=== PATIENT | female | born 1970 | race Caucasian/White ===

== ENCOUNTER 2019-02-24 16:40 | Emergency (ER) | payer OTHER ==
[~2019-02-24] VITALS: Ht 162.6 cm; Wt 81.1 kg
[2019-02-24 17:29] VITALS: Ht 162.6 cm; Wt 81.1 kg
[2019-02-24 21:16] VITALS: BP 163/72; PULSE 88; RESP 18
--- NOTE | 2019-02-24 22:16 | ERD ---
ER Documentation Chief Complaint Chief Complaint PCP recommended pt come to ED for Hgb 6.1, hx anemia HPI 48-year-old female with a history of anemia sent by her primary care doctor for possible transfusion. Patient states that within the recent months, she has had heavier periods. They did a HemoCue at the office which showed low hemoglobin. patient states that she knows she has a history of anemia and should be taking iron, but does not tolerate iron well. However she is denying any symptoms of dizziness, weakness, fatigue, decreased exercise tolerance, chest pain or shortness of breath. She states that she feels well. Denies any rectal bleeding including melena and hematochezia. ROS All systems reviewed and are negative except as per history of present illness. Allergies Allergies: Coded Allergies: No Known Allergy (Unverified , 02/24/19) PMhx/Soc Hx Miscellaneous Medical Probl: Yes (Anemia) Hx Alcohol Use: No Hx Substance Use: No Hx Tobacco Use: No FmHx Family History: No diabetes Physical Exam Vitals Vital Signs Date Temp Pulse Resp B/P (MAP) Pulse Ox O2 O2 Flow FiO2 Time Delivery Rate 02/24/19 98.4 88 18 163/72 98 Room Air 21:16 (102) 02/24/19 99.5 96 16 152/67 100 17:29 (95) Physical Exam Const: No acute distress Head: Atraumatic Eyes: Normal Conjunctiva ENT: Normal External Ears, Nose and Mouth. Neck: Full range of motion. No meningismus. Resp: Clear to auscultation bilaterally Cardio: Regular rate and rhythm, no murmurs Abd: Soft, non tender, non distended. Normal bowel sounds Skin: No petechiae or rashes Back: No midline or flank tenderness Ext: No cyanosis, or edema Neur: Awake and alert Psych: Normal Mood and Affect Result Diagram: 02/24/19 1844 02/24/19 1844 Results 24 hrs Laboratory Tests Test 02/24/19 18:44 White Blood Count 8.7 10^3/ul Red Blood Count 4.18 10^6/ul Hemoglobin 7.1 g/dl Hematocrit 26.1 % Mean Corpuscular Volume 62.4 fl Mean Corpuscular Hemoglobin 17.0 pg Mean Corpuscular Hemoglobin Concent 27.2 g/dl Red Cell Distribution Width 20.1 % Platelet Count 378 10^3/UL Mean Platelet Volume fl Immature Granulocytes % 0.500 % Neutrophils % 72.6 % Lymphocytes % 20.0 % Monocytes % 4.0 % Eosinophils % 2.2 % Basophils % 0.7 % Nucleated Red Blood Cells % 0.0 /100WBC Immature Granulocytes # 0.040 10^3/ul Neutrophils # 6.3 10^3/ul Lymphocytes # 1.7 10^3/ul Monocytes # 0.4 10^3/ul Eosinophils # 0.2 10^3/ul Basophils # 0.1 10^3/ul Nucleated Red Blood Cells # 0.0 10^3/ul Prothrombin Time 12.3 Sec Prothrombin Time Ratio 1.0 INR International Normalized Ratio 0.90 Activated Partial Thromboplast Time 25.0 Sec Sodium Level 142 mmol/L Potassium Level 3.5 mmol/L Chloride Level 107 mmol/L Carbon Dioxide Level 26 mmol/L Anion Gap 9 Blood Urea Nitrogen 8 mg/dl Creatinine 0.64 mg/dl Est Glomerular Filtrat Rate mL/min > 60 mL/min Glucose Level 100 mg/dl Calcium Level 9.3 mg/dl Total Bilirubin 0.3 mg/dl Direct Bilirubin 0.00 mg/dl Indirect Bilirubin 0.3 mg/dl Aspartate Amino Transf (AST/SGOT) 15 IU/L Alanine Aminotransferase (ALT/SGPT) 15 IU/L Alkaline Phosphatase 75 IU/L Total Protein 8.1 g/dl Albumin 4.9 g/dl Globulin 3.20 g/dl Albumin/Globulin Ratio 1.53 Procedures/MDM EMERGENT LABS AND DIAGNOSTIC STUDIES: Lab Results above were reviewed and interpreted by me. CBC: evidence of anemia with hemoglobin 7.1 CMP:no e/o electrolyte abnormality, severe acidosis, alkalosis, renal failure, diabetic ketoacidosis, liver disease Coags normal, no evidence of coagulopathy Initial Nursing notes reviewed. Previous Medical Records requested via the Electronic Health Record. EMERGENCY DEPARTMENT COURSE / MEDICAL DECISION MAKING: patient presents with anemia diagnosed by her PCP but she is asymptomatic at this time. She is hemodynamically stable. I do not feel she requires an emergent transfusion at this time. I discussed with her the importance of using iron as her blood count will drop with her next period and that that time she may require a transfusion. Currently she is not having any vaginal bleeding. I also recommended she discuss possible iron infusion therapy with her PCP as she is not tolerating iron well due to GI symptoms. Patient is agreeable with discharge plan. She understands the risks of not pursuing iron treatment. I also recommended follow-up with gynecology to discuss her heavy vaginal bleeding. Patient is agreeable with discharge plan. Return precautions given. Patient's blood pressure was elevated (>120/80) but appears stable without evidence of hypertensive emergency or urgency. The patient was counseled about the risks of hypertension and urged to pursue outpatient monitoring and therapy within a week with their primary care physician. Departure Diagnosis: Primary Impression: Anemia Anemia type: unspecified type Qualified Codes: D64.9 - Anemia, unspecified Additional Impression: Heavy periods Menorrahagia type: with onset of menstrual periods Qualified Codes: N92.2 - Excessive menstruation at puberty Condition: Stable Patient Instructions: Anemia, Iron Deficiency (Adult) Additional Instructions: Follow-up with your primary care doctor to discuss possible iron infusions if you are unable to take the oral iron. Return to the ER for any worsening symptoms. ANA M PAINTER MD Feb 24, 2019 22:16
== END 2019-02-24 22:31 | disposition home or self-care (01) ==
LOC: E/R 16:40
DX: D64.9 Anemia, unspecified (principal); N92.0 Excessive and frequent menstruation with regular cycle
CPT/HCPCS: 36415; 80053; 85025; 85610; 85730; 86850; 86900; 86901; Z7502; 99283